=== PATIENT | female | born 1955 | race Hispanic/Latino ===

== ENCOUNTER → 2017-07-12 | Outpatient (CLI) | payer BC ==
[2017-07-12 11:39] LABS: CREATININE, SERUM 1.95 mg/dL (0.57-1.11)
--- NOTE | 2017-07-12 12:29 | Diagnostic Imaging Report ---
PROCEDURE: X-RAY CHEST, TWO VIEWS COMPARISON: None. INDICATIONS: PREPROCEDURAL XRAY FOR RESPIRATORY EXAM FINDINGS: The lungs are well-inflated. There is a small right pleural effusion with adjacent right lower lobe opacity, likely atelectasis. No pneumothorax. Mild enlargement of the cardiac silhouette with a coronary artery stent. Atherosclerotic calcification of the thoracic aorta. Mild prominence of the interstitial markings of the lungs without overt alveolar edema. No acute osseous abnormality. Age indeterminate mild anterior compression deformity of T12. CONCLUSION: Cardiomegaly with pulmonary venous congestion and a small right pleural effusion. Age indeterminate mild anterior compression deformity of T12. Dictated by: Chris Guerra M.D. on 07/12/2017 at 12:31 Electronically approved by: Chris Guerra M.D. on 07/12/2017 at 12:31
--- NOTE | 2017-07-12 12:30 | Diagnostic Imaging Report ---
PROCEDURE:X-RAY LEFT TOES, MINIMUM TWO VIEWS COMPARISON:None. INDICATIONS:LEFT TOE INFECTION FINDINGS: Large soft tissue ulceration of the hallux with erosive changes of the subungual tuft of the distal phalanx. Remaining osseous structures are intact. No acute fractures. Atherosclerotic vascular calcifications. CONCLUSION: large soft tissue ulcer of the distal aspect of the hallux with underlying osteomyelitis of the subungual tuft of the distal phalanx. Dictated by: Chris Guerra M.D. on 07/12/2017 at 12:33 Electronically approved by: Chris Guerra M.D. on 07/12/2017 at 12:33
== END ==
LOC: DX 10:44
PROVIDERS: ATTEND Family Medicine Adult Medicine
DX: M86.272 Subacute osteomyelitis, left ankle and foot (principal)
CPT/HCPCS: 36415; 71046; 82565; 84520; 93005

== ENCOUNTER → 2017-07-12 | Outpatient (CLI) | payer BC | LOC: WCC 09:18 | PROVIDERS: ATTEND Family Medicine Adult Medicine | DX: E11.621 Type 2 diabetes mellitus with foot ulcer (principal); L97.526 Non-pressure chronic ulcer of other part of left foot with bone involvement without evidence of necrosis; L03.032 Cellulitis of left toe; I73.89 Other specified peripheral vascular diseases; I10 Essential (primary) hypertension; N18.9 Chronic kidney disease, unspecified; I25.119 Atherosclerotic heart disease of native coronary artery with unspecified angina pectoris; I70.209 Unspecified atherosclerosis of native arteries of extremities, unspecified extremity; Z01.810 Encounter for preprocedural cardiovascular examination; Z01.811 Encounter for preprocedural respiratory examination | CPT/HCPCS: 36415; 82948 ==